=== PATIENT | female | born 1990 | race Caucasian/White ===

== ENCOUNTER 2021-12-21 13:57 | Inpatient (IN) | payer OTHER ==
[~2021-12-21] VITALS: Ht 160 cm; Wt 104.8 kg
[2021-12-21 14:42] LABS: BILIRUBIN NEGATIVE (NEGATIVE); BLOOD TRACE-INTACT Ery/uL (NEGATIVE); CLARITY CLEAR (CLEAR); COLOR YELLOW (YELLOW); GLUCOSE (U) NORMAL (NORMAL); HCT 35.4 % (37.0-47.0); HGB 12.4 g/dl (12.5-16.0); LEUKOCYTES NEGATIVE Leu/uL (NEGATIVE); MCH 30.6 pg (25.0-31.0); MCV 87.4 fL (78.0-100.0); MPV 11.5 fL (6.0-9.5); NITRITE NEGATIVE (NEGATIVE); PROTEIN NEGATIVE (NEGATIVE); RBC 4.05 M/uL (4.20-5.40); RDW 13.1 % (11.5-14.0); UROBILINOGEN 0.2 mg/dL (0.2-1.0); WBC 8.7 K/uL (4.0-10.5); pH 6.5 (5.0-9.0)
[2021-12-21 14:51] LABS: BACTERIA 1+
[2021-12-24 06:38] LABS: HCT 31.4 % (37.0-47.0); HGB 10.8 g/dl (12.5-16.0); MCHC 34.4 g/dL (32.0-36.0); MCV 90.2 fL (78.0-100.0); MPV 11.9 fL (6.0-9.5); RBC 3.48 M/uL (4.20-5.40); RDW 13.1 % (11.5-14.0); WBC 15.7 K/uL (4.0-10.5)
== END 2021-12-25 19:45 | disposition home or self-care (01) | DRG 787 ==
LOC: FOB 13:57
PROVIDERS: Obstetrics & Gynecology; ADMIT Specialist
PROC: 3E0P7GC Introduction of Other Therapeutic Substance into Female Reproductive, Via Natural or Artificial Opening (ICD-10-PCS; 2021-12-21)
PROC: 10D00Z1 Extraction of Products of Conception, Low, Open Approach (ICD-10-PCS; principal; 2021-12-23 20:30)
DX: O76 Abnormality in fetal heart rate and rhythm complicating labor and delivery (principal); D62 Acute posthemorrhagic anemia; O63.9 Long labor, unspecified; O99.214 Obesity complicating childbirth; Z37.0 Single live birth; Z3A.39 39 weeks gestation of pregnancy; Z20.822 Contact with and (suspected) exposure to COVID-19; O99.02 Anemia complicating childbirth
CPT/HCPCS: 36415; 81001; 86850; 86900; 86901; J0456; J0595; J0690; J1100; J1200; J1885; J2274; J2405; J2795; J3010; J3105; J7050; J7120; U0002